=== PATIENT | female | born 1930 | race Caucasian/White ===

== ENCOUNTER 2016-11-16 16:06 | Inpatient (IN) | payer MEDICARE, OTHER ==
[2016-11-16 16:42] LABS: BASOPHILS 0.1 % (0-2); EOSINOPHILS 2.9 % (0-7); HEMATOCRIT 38.2 % (36.0-48.0); HEMOGLOBIN 13.4 g/dL (12-16); IMMATURE GRANULOCYTES 0.4 % (0-5); LYMPHOCYTES 10.9 % (15-50); MCH 34.9 pg (26.0-34.0); MCHC 35.1 g/dL (31.0-37.0); MCV 99.5 fL (80.0-100.0); MEAN PLATELET VOLUME 9.5 fL (7.4-10.4); MONOCYTES 6.9 % (2-11); NEUTROPHILS 78.8 % (40-80); PLATELET COUNT 213 10x3/uL (130-400); RBC 3.84 10x6/uL (4.00-5.40); RDW 13.5 % (11.5-14.5); WBC 11.6 10x3/uL (4.8-10.8)
[2016-11-16 16:53] LABS: INR 1.03 (0.85-1.17); PROTIME 13.4 SECONDS (11.6-15.0)
[2016-11-16 17:12] LABS: ALBUMIN 3.4 g/dL (3.4-5.0); ANION GAP 15.2 mmol/L (8-16); BILIRUBIN - TOTAL 0.56 mg/dL (0.2-1.3); CALCIUM 9.4 mg/dL (8.5-10.1); CARBON DIOXIDE 22.5 mmol/L (21.0-32.0); CREATININE - SERUM 0.9 mg/dL (0.6-1.3); POTASSIUM - SERUM 4.7 mmol/L (3.5-5.1); PROTEIN - SERUM 7.3 g/dL (6.4-8.2)
--- NOTE | 2016-11-16 21:59 | NUR ---
REC'D FROM ER FROM [facility]AY MORGAN. ALERT AND ORIENTED ONLY TO PERSON. DENIES PAIN AT THIS TIME. HAS LACERATIONS TO HER FOREHEAND AND CHIN. FACE IS BRUISED ALL OVER. IS NOT WANTING TO TAKE HER DRESS OFF, OR GET CLEANED UP. IV IS IN THE RIGHT FOREARM PATENT AND SL. CAME WITH HER WALLET, PLACED IN THE CASSETTE DUE TO THERE BEING MONEY INSIDE. THERE IS $35.30 IN THE WALLET. ROOM NUMBER IS PLACED ON WALLET. THERE IS ALSO A LIVING WILL INSIDE THE WAS DESINATING HER A DNR, WILL REPORT TO NURSE MAKE COPY AND PLACE ON CHART. PLACED MADHU MAT ON BED. DENIED FURTHER NEEDS AT THIS TIME. INSTRUCTED TO CALL IF NEEDED ANYTHING, VERBALIZED UNDERSTANDING. WILL CONT TO MONITOR. BED LOW, LOCKED, CALL LIGHT IN REACH, ALARM ON. NO DISTRESS NOTED.
--- NOTE | 2016-11-16 23:47 | NUR ---
RECIEVED REPORT. ASSUMED PT CARE.
[2016-11-17] VITALS (7 sets, daily range): BP systolic 115–158; BP diastolic 49–77; BMI 19.9
--- NOTE | 2016-11-17 03:02 | NUR ---
CALL PLACED TO ADMISSIONS AND SPOKE WITH AYE ABOUT HAVING PT BELONGINGS LOCKED IN SAFE. WAS INFORMED THAT SHE HAD NO ACCESS TO SAFE. SHE STATED THAT KALLIE COMES IN AT 0900 AND FAR SHE KNOWS SHE IS THE ONLY ONE WITH ACCESS TO SAFE. WILL PASS ON IN REPORT TO HAVE KALLIE COME TO LOCK ITEMS UP. THERE IS NO FAMILY AT BEDSIDE. ED MADE NOTE THAT THEY DID ATTEMPT TO CALL EMERGENCY CONTACT IN [facility] AND HAD TO LEAVE A MESSAGE.
--- NOTE | 2016-11-17 08:00 | NUR ---
ASSESSMENT PER FLOW SHEET.PT UP TO BATHROOM WITH ASSIST.FALL PREVENTION IN PLACE AND MADHU MAT ON.PT WITHOUT DISTRESS.CALL LIGHT IN REACH.
[2016-11-17] MEDS ORDERED: LISINOPRIL10 MG PO (09:59)
[2016-11-17] MEDS ORDERED: TOPROL XL100 MG PO (10:28)
[2016-11-17] MEDS ORDERED: ALENDRONATE SOD70 MG PO (10:30)
[2016-11-17] MEDS ORDERED: LUMIGAN 0.01%2.5 ML EACH EYE (10:30)
[2016-11-17] MEDS ORDERED: CELEBREX 100 M100 MG PO (10:30)
[2016-11-17] MEDS ORDERED: BUSPAR 15 MG TA15 MG PO (10:31)
[2016-11-17] MEDS ORDERED: TOZAL SOFTGEL1 EACH PO (10:41)
--- NOTE | 2016-11-17 10:49 | NUR ---
CM WAS NOTIFIED BY NURSING THAT THEY COULD NOT REACH DAUGHTER BY PHONE THAT WAS LISTED ON FACE SHEET. CM CALLED AND IT RANG AND RANG. CALLED THE CELL NUMBER LISTED ON CARD AND IT WAS NOT ACTIVE. CM THEN ASKED PATIENT IF SHE WOULD GIVE CONSENT FOR CM TO CALL LAW FIRM THAT WAS ON HER INFORMATION CARD AND SHE STATED YES. THE FIRM HAD THE SAME NUMBERS WAS ON THE FACE SHEET. CM TRIED 4 TIMES TO CALL DAUGHTER AND NO ANSWER. NURSE AND CM WILL CONTINUE TO TRY TO GET IN TOUCH WITH DAUGHTER.
[2016-11-17 11:10] LABS: BASOPHILS 0.1 % (0-2); EOSINOPHILS 0.7 % (0-7); HEMATOCRIT 34.9 % (36.0-48.0); HEMOGLOBIN 12.1 g/dL (12-16); IMMATURE GRANULOCYTES 0.2 % (0-5); LYMPHOCYTES 13.9 % (15-50); MCH 34.2 pg (26.0-34.0); MCHC 34.7 g/dL (31.0-37.0); MCV 98.6 fL (80.0-100.0); MEAN PLATELET VOLUME 9.7 fL (7.4-10.4); MONOCYTES 8.7 % (2-11); NEUTROPHILS 76.4 % (40-80); PLATELET COUNT 208 10x3/uL (130-400); RBC 3.54 10x6/uL (4.00-5.40); RDW 13.4 % (11.5-14.5)
[2016-11-17 11:12] LABS: WBC 8.2 10x3/uL (4.8-10.8)
[2016-11-17 11:34] LABS: ANION GAP 15.5 mmol/L (8-16); BILIRUBIN - TOTAL 0.76 mg/dL (0.2-1.3); CALCIUM 9.1 mg/dL (8.5-10.1); CARBON DIOXIDE 24.8 mmol/L (21.0-32.0); CREATININE - SERUM 0.8 mg/dL (0.6-1.3); POTASSIUM - SERUM 4.3 mmol/L (3.5-5.1); PROTEIN - SERUM 6.8 g/dL (6.4-8.2)
--- NOTE | 2016-11-17 13:46 | NUR ---
PT REFUSING MOST TX TODAY. SHE IS VERY WITHDRAWN FROM STAFF. FALL PREVENTION REMAINS IN PROGRESS WITH MADHU TUBBS.
--- NOTE | 2016-11-17 14:12 | NUR ---
CALL FROM DAUGHTER MARTINE, SHE LIVES IN [place]. SHE STATES SHE WILL BE HERE TOMORROW.
--- NOTE | 2016-11-17 16:57 | NUR ---
REMAINS WITHOUT CHANGE,WITHOUT DISTRESS.CONT PLAN OF CARE
[2016-11-18] VITALS: BP 171/95
[2016-11-18 04:00] VITALS: BP 151/80
[2016-11-18 05:15] LABS: BASOPHILS 0 % (0-2); EOSINOPHILS 0.5 % (0-7); HEMATOCRIT 35.3 % (36.0-48.0); HEMOGLOBIN 12.2 g/dL (12-16); IMMATURE GRANULOCYTES 0.4 % (0-5); LYMPHOCYTES 11.5 % (15-50); MCH 34.1 pg (26.0-34.0); MCHC 34.6 g/dL (31.0-37.0); MCV 98.6 fL (80.0-100.0); MEAN PLATELET VOLUME 9.4 fL (7.4-10.4); MONOCYTES 7.7 % (2-11); NEUTROPHILS 79.9 % (40-80); PLATELET COUNT 183 10x3/uL (130-400); RBC 3.58 10x6/uL (4.00-5.40); RDW 13.4 % (11.5-14.5)
[2016-11-18 05:44] LABS: ALBUMIN 3.1 g/dL (3.4-5.0); ALKALINE PHOSPHATASE 64 U/L (46-116); ALT (SGPT) 39 U/L (10-68); BILIRUBIN - TOTAL 0.65 mg/dL (0.2-1.3); CALC OSMOLALITY 266 mosm/kg (275-300); CALCIUM 9.3 mg/dL (8.5-10.1); CARBON DIOXIDE 23.3 mmol/L (21.0-32.0); CHLORIDE - SERUM 98 mmol/L (98-107); CREATININE - SERUM 0.6 mg/dL (0.6-1.3); GLUCOSE 108 mg/dL (74-106); POTASSIUM - SERUM 4.2 mmol/L (3.5-5.1); PROTEIN - SERUM 7.1 g/dL (6.4-8.2); SODIUM 132 mmol/L (136-145); eGFR NON AFRICAN AMERICAN > 90 mL/min (90-120)
[2016-11-18 05:45] LABS: UREA NITROGEN 16 mg/dL (7-18)
[2016-11-18 07:50] VITALS: BP 141/66
--- NOTE | 2016-11-18 08:53 | NUR ---
PATIENT LAYING IN BED WITH NO COMPLAINTS OR SIGNS OF DISTRSS. IV INTACT. BA ON. CALL LIGHT WITHIN REACH.
[2016-11-18 12:03] VITALS: BP 115/55
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
[2016-11-18 16:16] VITALS: BP 132/71
--- NOTE | 2016-11-18 18:20 | NUR ---
OT NOTE: PT COMPLETED SIT TO STANDS WITH SUPV. PT COMPLETED ADL MOB WITH SUPV. PT COMPLETED BUE AROM AX WITH SUPV. THANK YOU, JAKOB MCKEON/Chelsey
[2016-11-18 20:00] VITALS: BP 133/70
[2016-11-19] VITALS: BP 134/87
[2016-11-19 04:21] VITALS: BP 141/86
--- NOTE | 2016-11-19 04:45 | NUR ---
ASSESSED, AT THE BEGINNING OF THE SHIFT. PT IS CONFUSED AND WE HAVE A MADHU IN PLACE TO LET US KNOW SHE IS GETTING UP. SHE REMAINS INCONT. OF URINE AND EVEN THOUGH WE HAVE FREQUENTLY ASKED HER IF SHE NEEDS TO USE THE BSC SHE ALWAYS SAYS NO AND THEN IS INCONT. WHEN BEING CHANGED AND SITTING ON THE BSC SHE ALSO VOIDS. HER MEDS HAVE ALL BEEN TAKEN WELL AND SHE DENIES PAIN MOST OF THE TIME. THE BED IS LOW, RAILS UP X'S [address] ALARM IN PLACE AND CALL LIGHT AT HAND.
[2016-11-19 06:31] LABS: BASOPHILS 0.3 % (0-2); EOSINOPHILS 1.4 % (0-7); HEMATOCRIT 34.4 % (36.0-48.0); HEMOGLOBIN 11.9 g/dL (12-16); IMMATURE GRANULOCYTES 0.4 % (0-5); LYMPHOCYTES 19.3 % (15-50); MCHC 34.6 g/dL (31.0-37.0); MCV 98.3 fL (80.0-100.0); MEAN PLATELET VOLUME 9.2 fL (7.4-10.4); NEUTROPHILS 65.6 % (40-80); PLATELET COUNT 175 10x3/uL (130-400); RDW 13.2 % (11.5-14.5)
[2016-11-19 06:52] LABS: ALBUMIN 2.9 g/dL (3.4-5.0); ALKALINE PHOSPHATASE 53 U/L (46-116); ALT (SGPT) 33 U/L (10-68); CALC OSMOLALITY 268 mosm/kg (275-300); CALCIUM 9.1 mg/dL (8.5-10.1); CARBON DIOXIDE 26.7 mmol/L (21.0-32.0); CHLORIDE - SERUM 98 mmol/L (98-107); CREATININE - SERUM 0.6 mg/dL (0.6-1.3); GLUCOSE 113 mg/dL (74-106); POTASSIUM - SERUM 4.1 mmol/L (3.5-5.1); PROTEIN - SERUM 6.4 g/dL (6.4-8.2); SODIUM 133 mmol/L (136-145); UREA NITROGEN 17 mg/dL (7-18); eGFR NON AFRICAN AMERICAN > 90 mL/min (90-120)
--- NOTE | 2016-11-19 09:05 | NUR ---
PATIENT ALERT IN HIGH JESUS POSITION. NO SIGNS OF DISTRESS NOTED. SIDE RAILS UP X2. BED IN LOW POSITION. CALL LIGHT IN REACH.
[2016-11-19 09:24] VITALS: BP 122/60
[2016-11-19 12:49] VITALS: BP 114/60; BP 117/68
[2016-11-19 17:06] LABS: APPEARANCE HAZY (CLEAR); BILIRUBIN NEGATIVE (NEGATIVE); COLOR DK YELLOW (YELLOW); GLUCOSE NEGATIVE (NEGATIVE); KETONE LARGE mg/dL (NEGATIVE); NITRITE NEGATIVE (NEGATIVE); PROTEIN TRACE mg/dL (NEGATIVE); UROBILINOGEN NORMAL (NORMAL)
[2016-11-19 17:08] LABS: AMORPHOUS SEDIMENT >1+ /lpf (NONE SEEN); BACTERIA FEW /hpf (NONE SEEN); RED CELLS - URINE 0-5 /hpf (0-5)
--- NOTE | 2016-11-19 19:15 | NUR ---
RECEIVED CARE FROM DAY NURSE. PT LYING IN BED WITH EYES CLOSED. RESP EVEN AND UNLABORED. CALL LIGHT AT SIDE. PT EASY TO ROUSE.
--- NOTE | 2016-11-19 19:43 | NUR ---
LATE ENTRY 1230 PATIENT'S DAUGHTER AT THE BEDSIDE. SHE PROVIDED CM WITH INSURANCE CARDS. TC TO ER REGISTRATION. COPIES MADE OF CARDS AND ER REGISTRATOR PICKED THEM UP. PAPERWORK FOR MED DATA AT THE BEDSIDE. TC TO MED DATA. DAYSI VISITED AT THE BEDSIDE WITH THE DAUGHTER. CM PROVIDED THE DAUGHTER WITH BROCHURE FOR [facility]. SHE ALSO HAS BROCHURE FOR [facility]. UNABLE TO DOCUMENT IN [email or web address]- WEB PAGE DOWN.
[2016-11-19 20:02] VITALS: BP 123/60
[2016-11-19 23:51] VITALS: BP 133/69
--- NOTE | 2016-11-19 23:58 | NUR ---
RESTING QUITLY. RESP EVEN AND UNLABORED. CALL LIGHT AT SIDE. NO IV DUE TO PT FREQUENT REMOVAL AND NO FLUIDS ORDERED.
--- NOTE | 2016-11-20 03:40 | NUR ---
ASSESSED, PT HAS JUST RECENTLY RECEIVED A BATH AND IS NOW RESTING QUIET WITH EASY RESPIRATIONS AND NO DISTRESS NOTED. SHE HAS A MADHU IN HER BED AND IF WE GET A CHANCE WE ARE TRYING TO TAKE HER TO THE BEDSIDE COMMODE BEFORE SHE IS INCONT. THE BED IS LOW, RAILS UP X'S 2 WITH THE CALL LIGHT AT HAND.
[2016-11-20 04:02] VITALS: BP 128/73
[2016-11-20 05:54] LABS: BASOPHILS 0.1 % (0-2); EOSINOPHILS 1.7 % (0-7); HEMATOCRIT 33.6 % (36.0-48.0); HEMOGLOBIN 11.8 g/dL (12-16); IMMATURE GRANULOCYTES 0.1 % (0-5); LYMPHOCYTES 18.9 % (15-50); MCH 34.3 pg (26.0-34.0); MCHC 35.1 g/dL (31.0-37.0); MCV 97.7 fL (80.0-100.0); MEAN PLATELET VOLUME 9.6 fL (7.4-10.4); MONOCYTES 13.7 % (2-11); NEUTROPHILS 65.5 % (40-80); PLATELET COUNT 203 10x3/uL (130-400); RBC 3.44 10x6/uL (4.00-5.40); WBC 7.6 10x3/uL (4.8-10.8)
[2016-11-20 06:05] LABS: ALBUMIN 2.7 g/dL (3.4-5.0); ALKALINE PHOSPHATASE 53 U/L (46-116); ALT (SGPT) 25 U/L (10-68); BILIRUBIN - TOTAL 0.65 mg/dL (0.2-1.3); CALC OSMOLALITY 270 mosm/kg (275-300); CALCIUM 8.9 mg/dL (8.5-10.1); CARBON DIOXIDE 25.7 mmol/L (21.0-32.0); CHLORIDE - SERUM 99 mmol/L (98-107); CREATININE - SERUM 0.5 mg/dL (0.6-1.3); GLUCOSE 108 mg/dL (74-106); POTASSIUM - SERUM 3.8 mmol/L (3.5-5.1); PROTEIN - SERUM 6.2 g/dL (6.4-8.2); SODIUM 134 mmol/L (136-145); UREA NITROGEN 17 mg/dL (7-18); eGFR NON AFRICAN AMERICAN > 90 mL/min (90-120)
--- NOTE | 2016-11-20 07:50 | NUR ---
SLEEPING, NO DISTRESS NOTED, BREATHING EVEN UNLABORED, CALL LIGHT IN REACH, BED LOWEST POSITION, BED ALARM ON, WILL CONITNUE TO MONITOR
[2016-11-20 08:38] VITALS: BP 126/66
[2016-11-20 12:08] VITALS: BP 139/68
[2016-11-20 16:16] VITALS: BP 142/70
--- NOTE | 2016-11-20 17:15 | NUR ---
RECEIVED CARE FROM DAY NURSE. PT UP TO BEDSIDE CHAIR WITH DAUGHTER AT SIDE. NO NEEDS VOICED AT THIS TIME. CALL LIGHT WITHIN REACH.
[2016-11-20 19:55] VITALS: BP 135/68
[2016-11-20 23:47] VITALS: BP 118/66
--- NOTE | 2016-11-21 00:16 | NUR ---
PATIENT RESTING IN BED WITH NAHUN MAYORGA AT BEDSIDE. NO VISIBLE SIGNS OF DISTRESS NOTED. BED IN LOWEST POSITION AND CALL LIGHT WITHIN REACH.
--- NOTE | 2016-11-21 02:57 | NUR ---
PT UP IN CHAIR. MADHU SEAT ALARM IN PLACE. REPORTS NO NEEDS AT THIS TIME. CALL LIGHT AT SIDE.
[2016-11-21 04:01] VITALS: BP 100/64
--- NOTE | 2016-11-21 04:25 | NUR ---
PT BACK TO BED AND RESTING QUITLY. RESP EVEN AND UNLABORED. CALL LIGHT AT SIDE. MADHU ALARM ACTIVATED.
[2016-11-21 05:54] LABS: BASOPHILS 0.2 % (0-2); EOSINOPHILS 2.1 % (0-7); HEMATOCRIT 33.2 % (36.0-48.0); HEMOGLOBIN 11.5 g/dL (12-16); IMMATURE GRANULOCYTES 0.2 % (0-5); LYMPHOCYTES 18.2 % (15-50); MCH 34.3 pg (26.0-34.0); MCHC 34.6 g/dL (31.0-37.0); MCV 99.1 fL (80.0-100.0); MEAN PLATELET VOLUME 9.2 fL (7.4-10.4); MONOCYTES 12.4 % (2-11); NEUTROPHILS 66.9 % (40-80); PLATELET COUNT 204 10x3/uL (130-400); RBC 3.35 10x6/uL (4.00-5.40); RDW 13.2 % (11.5-14.5); WBC 6.6 10x3/uL (4.8-10.8)
[2016-11-21 06:17] LABS: ALBUMIN 2.7 g/dL (3.4-5.0); ALKALINE PHOSPHATASE 45 U/L (46-116); ALT (SGPT) 24 U/L (10-68); CALC OSMOLALITY 271 mosm/kg (275-300); CALCIUM 8.9 mg/dL (8.5-10.1); CARBON DIOXIDE 26.3 mmol/L (21.0-32.0); CHLORIDE - SERUM 99 mmol/L (98-107); CREATININE - SERUM 0.5 mg/dL (0.6-1.3); GLUCOSE 127 mg/dL (74-106); POTASSIUM - SERUM 3.6 mmol/L (3.5-5.1); PROTEIN - SERUM 6.1 g/dL (6.4-8.2); SODIUM 134 mmol/L (136-145); UREA NITROGEN 17 mg/dL (7-18); eGFR NON AFRICAN AMERICAN > 90 mL/min (90-120)
[2016-11-21 08:44] VITALS: BP 124/66
[2016-11-21 12:40] VITALS: BP 106/56
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
--- NOTE | 2016-11-21 14:46 | NUR ---
Rehab Note- [facility] Pres[facility] order received. Visited with the patient, she's sitting up in the chair reading through a booklet. Stated she was willing to participate in the required therapy for acute inpatient rehab and if they thought she was ready to go she was ready. Notified AMALIA Lau and VENKAT Moreau that the patient can be accepted to [facility] IRF. Thank you for this referral! Paulina Hand RN Clinical Liaison, [facility] Rehab
--- NOTE | 2016-11-21 15:14 | NUR ---
CM REASSESSMENT NOTE: PATIENT IS DISCHARGING TO IP REHAB TODAY. PATIENTS FAMILY IS AWARE (MARTINE). IMM SERVED
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
--- NOTE | 2016-11-21 17:45 | NUR ---
DISCHARGED PAPER AND INSTRUCTIONS GIVEN TO PT AND DAUGHTER, REPORT CALLED TO RAUL IN IN-PATIENT REHAB, QUESTIONS ANSWERED, DISCHARGED PER WC WITH BELONGINGS
== END 2016-11-21 17:47 | DRG 89 ==
LOC: D.ER 16:06 → D.MS 20:33 → D.ER 20:33 → OBSVTIME 20:33 → D.MS 11-18 16:01
PROVIDERS: Emergency Medicine; Family Medicine; ADMIT Family Medicine
PROC: 0HQ1XZZ Repair Face Skin, External Approach (ICD-10-PCS; principal; 2016-11-16)
DX: S06.0X9A Concussion with loss of consciousness of unspecified duration, initial encounter (principal); E87.1 Hypo-osmolality and hyponatremia; S02.2XXA Fracture of nasal bones, initial encounter for closed fracture; I62.03 Nontraumatic chronic subdural hemorrhage; I10 Essential (primary) hypertension; D18.1 Lymphangioma, any site; I48.2 Chronic atrial fibrillation; S01.81XA Laceration without foreign body of other part of head, initial encounter; V49.9XXA Car occupant (driver) (passenger) injured in unspecified traffic accident, initial encounter

== ENCOUNTER 2016-11-21 16:59 | Inpatient (IN) | payer MEDICARE, OTHER ==
[~2016-11-21 16:59] MED LIST: ALENDRONATE SOD70 MG PO; BUSPAR 15 MG TA15 MG PO; CELEBREX 100 M100 MG PO; LISINOPRIL10 MG PO; LUMIGAN 0.01%2.5 ML EACH EYE; TOPROL XL100 MG PO; TOZAL SOFTGEL1 EACH PO
[2016-11-21 21:30] VITALS: BP 141/60
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
[2016-11-22 05:43] LABS: BASOPHILS 0 % (0-2); EOSINOPHILS 2.7 % (0-7); HEMATOCRIT 33.6 % (36.0-48.0); HEMOGLOBIN 11.7 g/dL (12-16); IMMATURE GRANULOCYTES 0.4 % (0-5); LYMPHOCYTES 18.9 % (15-50); MCH 34.4 pg (26.0-34.0); MCHC 34.8 g/dL (31.0-37.0); MCV 98.8 fL (80.0-100.0); MEAN PLATELET VOLUME 9.3 fL (7.4-10.4); MONOCYTES 12.5 % (2-11); NEUTROPHILS 65.5 % (40-80); PLATELET COUNT 236 10x3/uL (130-400); RDW 13.2 % (11.5-14.5); WBC 7.1 10x3/uL (4.8-10.8)
[2016-11-22 06:06] LABS: CALC OSMOLALITY 268 mosm/kg (275-300); CARBON DIOXIDE 27.5 mmol/L (21.0-32.0); CHLORIDE - SERUM 97 mmol/L (98-107); GLUCOSE 117 mg/dL (74-106); POTASSIUM - SERUM 3.8 mmol/L (3.5-5.1); SODIUM 132 mmol/L (136-145); UREA NITROGEN 20 mg/dL (7-18); eGFR NON AFRICAN AMERICAN 84 mL/min (90-120)
[2016-11-22 06:07] LABS: CREATININE - SERUM 0.7 mg/dL (0.6-1.3)
[2016-11-22 08:00] VITALS: BP 145/67
--- NOTE | 2016-11-22 08:50 | NUR ---
PT AM MEDS ADMINISTERED. PT RESTING IN BED AND DENIES NEEDS. WCTM.
[2016-11-22 12:22] VITALS: BMI 19.9
--- NOTE | 2016-11-22 12:30 | NUR ---
PT ADMISSION PAPERS SIGNED BY DAUGHTER. PT EATING LUNCH AND DENIES NEEDS AT THIS TIME. WCTM.
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
--- NOTE | 2016-11-22 19:38 | NUR ---
PT. IN BED WITH HOB UP FOR COMFORT WITH EYES CLOSED AND RESP. EVEN. CALL LIGHT WITHIN REACH.
--- NOTE | 2016-11-22 20:10 | NUR ---
REST IN BED, HOB 30 DEGREE, BED LOW, CALL LIGHT IN REACH.
[2016-11-22 22:09] VITALS: BP 114/62
--- NOTE | 2016-11-23 02:03 | NUR ---
REPOSITION PT, TURN TO RIGHT SIDE AND REST COMFORTABLY.
[2016-11-23 06:13] LABS: BASOPHILS 0.3 % (0-2); HEMATOCRIT 35.1 % (36.0-48.0); HEMOGLOBIN 12.1 g/dL (12-16); IMMATURE GRANULOCYTES 0.3 % (0-5); LYMPHOCYTES 22.6 % (15-50); MCH 34.5 pg (26.0-34.0); MCHC 34.5 g/dL (31.0-37.0); MEAN PLATELET VOLUME 9.1 fL (7.4-10.4); MONOCYTES 12.6 % (2-11); NEUTROPHILS 61.2 % (40-80); PLATELET COUNT 262 10x3/uL (130-400); RBC 3.51 10x6/uL (4.00-5.40); RDW 13.4 % (11.5-14.5); WBC 6.7 10x3/uL (4.8-10.8)
[2016-11-23 06:44] LABS: CALC OSMOLALITY 271 mosm/kg (275-300); CALCIUM 9.1 mg/dL (8.5-10.1); CARBON DIOXIDE 25.8 mmol/L (21.0-32.0); CHLORIDE - SERUM 97 mmol/L (98-107); CREATININE - SERUM 0.6 mg/dL (0.6-1.3); GLUCOSE 105 mg/dL (74-106); POTASSIUM - SERUM 4.3 mmol/L (3.5-5.1); SODIUM 134 mmol/L (136-145); UREA NITROGEN 23 mg/dL (7-18); eGFR NON AFRICAN AMERICAN > 90 mL/min (90-120)
--- NOTE | 2016-11-23 07:59 | NUR ---
PT SITTING UP IN BED EATING BREAKFAST, DENIES NEEDS. WCTM.
[2016-11-23 08:40] VITALS: BP 121/78
--- NOTE | 2016-11-23 10:00 | NUR ---
PT RESTING IN ROOM, DAUGHTER AT BEDSIDE. PT DENIES NEEDS. WCTM.
--- NOTE | 2016-11-23 12:30 | NUR ---
PT EATING LUNHC, DENIES NEEDS. WCTM.
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
--- NOTE | 2016-11-23 16:03 | NUR ---
Wound care consult: Noted bruising to face, arms, hands and legs. Pt has very slow to demetrio right heel and non-blanchable left lateral heel (stage 1 pressure injury)-present on admission. There is also a stage 1 pressure injury to coccyx. Heels are being bridged at all times while in bed. Pt is being repositioned q2h while awake in bed. Calmoseptine cream is being applied to bottom. Wound care will continue to monitor.
--- NOTE | 2016-11-23 17:22 | NUR ---
PT EATING DINNER, DENIES NEEDS. WCTM.
--- NOTE | 2016-11-23 19:15 | NUR ---
PT IN BED WITH HOB UP FOR COMFORT WITH EYES CLOSED AND RESP. EVEN. CALL LIGHT WITHIN REACH.
[2016-11-23 20:00] VITALS: BP 132/71
--- NOTE | 2016-11-23 21:02 | NUR ---
PT RESTING IN BED WITH EYES CLOSED. OPENS EYES TO LOUD VERBAL STIMULI. PT DID NOT SPEAK TO ME AT ALL. TOOK PM MEDS WITH 1 SWALLOW OF WATER ONLY. SHE WOULD NOT TRY ANOTHER. PT ASSISTED TO REPOSITION IN BED. SR'S ARE UP X 3 IN BED. CALL LIGHT AND BEDSIDE TABLE ARE WITHIN EASY REACH.
--- NOTE | 2016-11-24 00:42 | NUR ---
RESTING IN BED WITH EYES CLOSED.
--- NOTE | 2016-11-24 03:30 | NUR ---
RESTING IN BED WITH EYES CLOSED.
--- NOTE | 2016-11-24 05:43 | NUR ---
PT RESTING IN BED WITH EYES CLOSED. RESPONDS TO LOUD VERBAL STIMULI FOR A FEW SECONDS, THEN CLOSES HER EYES AGAIN. NO VERBAL COMMUNICATION NOTED.
--- NOTE | 2016-11-24 07:13 | NUR ---
RESTING QUIETLY IN BED. BED IN LOWEST POSITION. CALL LIGHT IN REACH
[2016-11-24 08:03] VITALS: BP 110/62
--- NOTE | 2016-11-24 08:26 | NUR ---
PT RESTING IN BED WITH EYES OPEN CALL LIGHT IN REACH WILL MONITER
--- NOTE | 2016-11-24 13:41 | NUR ---
PT UP IN WHEELCHAIR OUT IN COURTYARD WITH DAUGHTER WILL JOSE
--- NOTE | 2016-11-24 18:11 | NUR ---
PT RESTING IN BED WITH EYES OPEN CALL LIGHT IN REACH WILL MONITER
--- NOTE | 2016-11-24 19:15 | NUR ---
RESTING IN BED, EYES CLOSED.
[2016-11-24 20:40] VITALS: BP 128/63
--- NOTE | 2016-11-24 20:40 | NUR ---
HS MEDS GIVEN TO PATIENT. PATIENT I ORIENTED X1. SHE IS DROWSY BUT ATTENDS ALL QUESTIONS AND TOOK HER MEDICATIONS WITHOUT DIFFICULTY.
--- NOTE | 2016-11-24 21:55 | NUR ---
RESTING IN BED, EYES CLOSED. NO DISTRESS NOTED.
--- NOTE | 2016-11-24 22:45 | NUR ---
REMAINS IN BED, EYES CLOSED. RESTING QUIETLY.
[2016-11-24 22:56] VITALS: BP 128/63
--- NOTE | 2016-11-25 00:10 | NUR ---
REMAINS IN BED, EYES CLOSED. NO DISTRESS NOTED.
--- NOTE | 2016-11-25 03:50 | NUR ---
RESTING IN BED, EYES CLOSED. RESPIRING QUIETLY.
[2016-11-25 05:13] LABS: BASOPHILS 0.2 % (0-2); EOSINOPHILS 2.9 % (0-7); HEMATOCRIT 32.5 % (36.0-48.0); HEMOGLOBIN 11.4 g/dL (12-16); IMMATURE GRANULOCYTES 0.4 % (0-5); LYMPHOCYTES 17.1 % (15-50); MCH 34.5 pg (26.0-34.0); MCHC 35.1 g/dL (31.0-37.0); MCV 98.5 fL (80.0-100.0); MEAN PLATELET VOLUME 8.9 fL (7.4-10.4); MONOCYTES 12.3 % (2-11); NEUTROPHILS 67.1 % (40-80); PLATELET COUNT 263 10x3/uL (130-400); WBC 8.3 10x3/uL (4.8-10.8)
[2016-11-25 05:29] LABS: CALC OSMOLALITY 277 mosm/kg (275-300); CALCIUM 9.3 mg/dL (8.5-10.1); CARBON DIOXIDE 27.5 mmol/L (21.0-32.0); CHLORIDE - SERUM 100 mmol/L (98-107); CREATININE - SERUM 0.7 mg/dL (0.6-1.3); GLUCOSE 105 mg/dL (74-106); SODIUM 137 mmol/L (136-145); UREA NITROGEN 25 mg/dL (7-18); eGFR NON AFRICAN AMERICAN 84 mL/min (90-120)
--- NOTE | 2016-11-25 06:50 | NUR ---
ASSISTED PATIENT TO CHANGED FROJM GOWN TO SCRUB TOP AND BRIEF. DENIES NEEDS.
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
--- NOTE | 2016-11-25 09:12 | NUR ---
PT RESTING IN BED WITH EYES OPEN CALL LIGHT IN REACH WILL MONITER
--- NOTE | 2016-11-25 13:36 | NUR ---
PT RESTING IN BED WITH EYES OPEN CALL LIGHT IN REACH NO PROBLEMS WILL MONITER
[2016-11-25 18:15] VITALS: BP 133/82
--- NOTE | 2016-11-25 18:15 | NUR ---
PT RESTING IN BED WITH EYES OPEN CALL LIGHT IN REACH WILL MONITER
--- NOTE | 2016-11-25 18:45 | NUR ---
IN BED, AWAKE. DENIES NEEDS.
--- NOTE | 2016-11-25 20:00 | NUR ---
RESTING QUIETLY IN BED, HOB UP 45 DEGREES. NO DISTRESS NOTED.
--- NOTE | 2016-11-25 22:50 | NUR ---
ASSESSMENT AND HS MEDS COMPLETE. DENIES NEEDS. TURNED PATIENT TO LEFT SIDELYING POSITION.
--- NOTE | 2016-11-26 00:30 | NUR ---
RESTING IN BED, EYES CLOSED.
--- NOTE | 2016-11-26 02:15 | NUR ---
RESTING IN BED ON LEFT SIDE. APPEARS COMFORTABLE.
--- NOTE | 2016-11-26 03:50 | NUR ---
RESTING QUIETLY IN BED. RESPIRATIONS UNLABORED.
--- NOTE | 2016-11-26 05:50 | NUR ---
GAVE PATIENT SCHEDULED PROTONIX PO. CLEANSED HER AND CHANGED BRIEF FROM MODERATE URINE INCONTINENCE.
[2016-11-26 08:00] VITALS: BP 111/59
--- NOTE | 2016-11-26 08:00 | NUR ---
PATIENT IS VERY CONFUSED. TRYING TO CLIMB OUT OF BED TO USE THE BATHROOM. MADHU BED ALARM WENT OFF. THIS NURSE HELPED PATIENT INTO BATHROOM. MODERATE ASST OF ONE. PATIENT BRIEF WET. THIS NURSE HELPED PATIENT WITH KARAN CARE AND TO APPLY NEW BRIEF.
--- NOTE | 2016-11-26 12:00 | NUR ---
PATIENT HAS A POOR APPETITE. ONLY ATE 10% OF LUNCH. FLUIDS ENCOURAGED BY THIS NURSE.
--- NOTE | 2016-11-26 13:44 | NUR ---
PATIENT DOWN IN REHAB ROOM. WORKING WITH PHYSICAL THERAPIST. DENIES ANY PAIN/DISC.
--- NOTE | 2016-11-26 14:34 | NUR ---
IN BATHROOM WITH NURSE ATTENDING.
--- NOTE | 2016-11-26 14:54 | NUR ---
PATIENT HELPED WITH SHOWER BY THIS NURSE. PATIENT ABLE TO WASH AND DRY FRONT OF SELF. THIS NURSE WASHED HAIR, BACK, LEGS AND BOTTOM. LINES ON BED CHANGED.
--- NOTE | 2016-11-26 17:31 | NUR ---
PATIENTS FAMILY MEMBER IN ROOM WITH PATIENT. BROUGHT IN SOME FOOD FROM OUT OF HOSPITAL FOR PATIENT TO EAT FOR SUPPER.
[2016-11-26 19:15] VITALS: BP 117/63
--- NOTE | 2016-11-26 19:15 | NUR ---
VS AND ASSESSMENT COMPLETE. DENIES NEEDS. REMINDED HER SHE IS NOT TO ATTEMPT OOB WITHOUT STAFF ASSIST. CONTINUES IN BED WITH MADHU BED ALARM ARMED. SR UP X3. WATER AND CALL LIGHT IN REACH.
--- NOTE | 2016-11-26 21:00 | NUR ---
HS MEDS GIVEN TO PATIENT. DENIES NEEDS. CLEANSED PATIENT FROM SMALL LOOSE BM INCONTINENCE. APPLIED CALMOSEPTINE OINTMENT AND A FRESH PULL-UP. REPOSITIONED PATIENT HIGHER UP IN BED. HEELS BRIDGED WITH A PILLOW.
--- NOTE | 2016-11-26 21:50 | NUR ---
RESTING QUIETLY IN BED, EYES CLOSED.
--- NOTE | 2016-11-26 23:05 | NUR ---
RESTING QUIETLY IN BED, EYES CLOSED.
--- NOTE | 2016-11-27 01:10 | NUR ---
CAUGHT PATIENT ATTEMPTING OOB, ALONE, WITH MADHU ALARM SOUNDING. RESET ALARM. AMBULATED PATIENT TO [facility] WHERE SHE URINATED AND WAS ASSISTED TO CHANGE HER BRIEF AFTER LARGE URINE INCONTINENCE. RETURNED PATIENT TO BED. REMINDED HER TO CALL FOR ASSIST AND NOT TO ATTEMPT OOB WITHOUT STAFF ASSIST. CONTINUES ORIENTED TO SELF ONLY.
--- NOTE | 2016-11-27 03:20 | NUR ---
REMAISN IN BED, EYES CLOSED. NO EVIDENT DISTRESS.
--- NOTE | 2016-11-27 04:45 | NUR ---
IN BED, EYES CLOSED. RESPIRATIONS UNLABORED.
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
--- NOTE | 2016-11-27 07:40 | NUR ---
PT ASSISTED TO/FROM BATHROOM. PT SITTING UP IN WC EATING BREAKFAST. WCTM.
[2016-11-27 08:00] VITALS: BP 126/75
--- NOTE | 2016-11-27 10:23 | NUR ---
PT ASSISTED TO/FROM BATHROOM. PT HAD BROWN, WATERY BM. PT BACK IN BED AT THIS TIME AND DENIES NEEDS. WCTM.
--- NOTE | 2016-11-27 12:20 | NUR ---
PT ASSISTED TO/FROM BATHROOM. PT SITTING UP IN WC AT THIS TIME EATING LUNCH, DENIES NEEDS.
--- NOTE | 2016-11-27 19:25 | NUR ---
RESTING QUIETLY IN BED, EYES CLOSED.
--- NOTE | 2016-11-27 20:20 | NUR ---
REMAINS IN BED, EYES CLOSED. NO DISTRESS EVIDENT.
[2016-11-27 22:00] VITALS: BP 151/64
--- NOTE | 2016-11-27 22:15 | NUR ---
ASSESSMENT, VS, AND HS MEDS COMPLETE. PATIENT DROWSY BUT RESPONSIVE AND COOPERATIVE. DENIES NEEDS.
--- NOTE | 2016-11-28 00:25 | NUR ---
REMAINS IN BED, HOB UP 20 DEGREES. APPEARS COMFORTABLE.
--- NOTE | 2016-11-28 02:00 | NUR ---
IN BED, EYES CLOSED. NO APPARENT DISCOMFORT.
--- NOTE | 2016-11-28 04:40 | NUR ---
IN BED, EYES CLOSED. RESPIRATIONS UNOLABORED.
--- NOTE | 2016-11-28 05:45 | NUR ---
SET OFF BED ALARM ATTEMPTING OOB. ASSISTED PATIENT UP TO BR TO CHANGE BRIEF AFTER SMALL URINE INCONTINENCE. URINATED A LARGE AMOUNT IN COMMODE. RETURNED HER TO BED.
[2016-11-28 05:59] LABS: BASOPHILS 0.1 % (0-2); EOSINOPHILS 3.4 % (0-7); HEMATOCRIT 33.8 % (36.0-48.0); HEMOGLOBIN 11.6 g/dL (12-16); IMMATURE GRANULOCYTES 0.3 % (0-5); LYMPHOCYTES 22.1 % (15-50); MCH 33.5 pg (26.0-34.0); MCHC 34.3 g/dL (31.0-37.0); MCV 97.7 fL (80.0-100.0); MONOCYTES 10.9 % (2-11); NEUTROPHILS 63.2 % (40-80); PLATELET COUNT 306 10x3/uL (130-400); RBC 3.46 10x6/uL (4.00-5.40); RDW 12.8 % (11.5-14.5)
[2016-11-28 06:18] LABS: CALC OSMOLALITY 265 mosm/kg (275-300); CALCIUM 8.9 mg/dL (8.5-10.1); CARBON DIOXIDE 26.1 mmol/L (21.0-32.0); CHLORIDE - SERUM 99 mmol/L (98-107); CREATININE - SERUM 0.6 mg/dL (0.6-1.3); GLUCOSE 101 mg/dL (74-106); POTASSIUM - SERUM 3.7 mmol/L (3.5-5.1); SODIUM 133 mmol/L (136-145); UREA NITROGEN 12 mg/dL (7-18); eGFR NON AFRICAN AMERICAN > 90 mL/min (90-120)
--- NOTE | 2016-11-28 07:45 | NUR ---
PT SITTING UP IN BED, BREAKFAST TRAY ON TABLE. PT NOT EATING. WHEN ASKED IF PT IS HUNGRY PT STATES "YES." I CUT UP PANCAKE AND SAUSAGE AND PT JUST LOOKED AT IT. WHEN I FED PT SHE ATE 90% OF BREAKFAST. WCTM.
[2016-11-28 09:11] VITALS: BP 155/85
--- NOTE | 2016-11-28 09:57 | NUR ---
PT SHOWERED AND ASSISTED TO USE BR. PT NOW SITTING UP IN WC WAITING FOR THERAPY TO START. WCTM.
--- NOTE | 2016-11-28 11:01 | NUR ---
Nutrition Follow Up: Pt was in therapy at the time of RD visit. Interview deferred. Chart reviewed. Noted per nursing note nurse fed pt and she ate 90% breakfast this am. Noted per chart pt with some confusion at times. Pt is eating 20% meal avg on a regular diet. She is receiving Ensure TID. +BM 11/27/16. Labs and meds reviewed. Rec continue current diet. Rec assistance with meals. Will continue to provide selective menus and honor food preferences. RD following.
--- NOTE | 2016-11-28 16:07 | NUR ---
PT RESTING, EYES CLOSED. BED LOW. CL IN REACH. WCTM.
--- NOTE | 2016-11-28 19:45 | NUR ---
PT IN BED WITH HOB UP FOR COMFORT. WATCHING TV. FACIAL BRUISING. NO O2. NO IV. MADHU ALARM ON. BED IN LOWEST POSITION AND CALL LIGHT WITHIN REACH.
--- NOTE | 2016-11-28 21:50 | NUR ---
PT REFUSING TO GO TO BATHROOM PER JAGDEEP YARD SUPERVISOR.
--- NOTE | 2016-11-29 01:45 | NUR ---
PT IN BED WITH HOB UP FOR COMFORT. EYES CLOSED. CHEST RISING AND FALLING. BED IN LOWEST POSITION AND CALL LIGHT WITHIN REACH.
--- NOTE | 2016-11-29 04:24 | NUR ---
PT IN BED WITH HOB UP FOR COMFORT. EYES CLOSED. RESPIRATIONS EVEN. BED IN LOWEST POSITION AND CALL LIGHT WITHIN REACH.
--- NOTE | 2016-11-29 05:19 | NUR ---
RESTING IN BED WITH EYES CLOSED AT THIS TIME. NO S/S OF DISTRESS OBSERVED. REQUIRES STAND BY ASSIST TO TOILET AND HAS PERIODS OF URINE INCONTINENCE. REQUIRES LOTS OF CUES. CALL LIGHT AND OVERBED TABLE IN REACH.
[2016-11-29 08:33] VITALS: BP 113/59
--- NOTE | 2016-11-29 09:02 | NUR ---
PT RESTING IN BED WITH EYES OPEN CALL LIGHT IN REACH NO PROBLEMS WILL MONITER
--- NOTE | 2016-11-29 14:22 | NUR ---
PT RESTING IN BED WITH EYES OPEN CALL LIGHT IN REACH WILL MONITER
--- NOTE | 2016-11-29 20:10 | NUR ---
PT IN BED WITH HOB @ 30 DEGREES. ALERT & ORIENTED. FAMILY AT BEDSIDE. TRACH. NO O2. O2 @ 6L @ NIGHT. NO IV. OSMOLITE 1.0 RUNNING THROUGH PT @ 57 ML/HR AND FLUSH 10 ML/HR. CONTACT ISOLATION FOR MDRO IN URINE. NPO. SUPRAPUBIC CATH. INCONTINENT OF BOWEL. PRESSURE ULCERS ON LEFT KNEE, SACRUM, AND HEAD. BED IN LOWEST POSITION AND CALL LIGHT WITHIN REACH.
--- NOTE | 2016-11-29 20:15 | NUR ---
PT IN BED WITH HOB UP FOR COMFORT. WATCHING TV. FACIAL BRUISING. NO O2. NO IV. INCONTINENT AT TIMES. BED IN LOWEST POSITION AND CALL LIGHT WITHIN REACH. MADHU ALARM ON.
[2016-11-29 21:00] VITALS: BP 121/59
--- NOTE | 2016-11-30 00:10 | NUR ---
PT IN BED WITH HOB UP FOR COMFORT. EYES CLOSED. CHEST RISING AND FALLING. BED IN LOWEST POSITION AND CALL LIGHT WITHIN REACH.
--- NOTE | 2016-11-30 01:01 | NUR ---
RESTING IN BED WITH EYES CLOSED. EASILY AROUSES WHEN DOOR OPENS. CONTINUES TO HAVE DARK PURPLE BRUISING TO FACE. HOB ELEVATED PER PT PREFERENCE. SIDE RAILS UP X2. DENIES ANY PAIN AT THIS TIME. CALL LIGHHT AND OVERBED TABLE IN REACH.
--- NOTE | 2016-11-30 03:46 | NUR ---
ASSISTED PT TO BATHROOM AND BACK TO BED.
--- NOTE | 2016-11-30 04:46 | NUR ---
PT IN BED WITH HOB UP FOR COMFORT. EYES CLOSED. CHEST RISING AND FALLING. BED IN LOWEST POSITION AND CALL LIGHT WITHIN REACH.
[2016-11-30 08:12] VITALS: BP 100/65
--- NOTE | 2016-11-30 08:15 | NUR ---
PT IN BED EATING BREAKFAST TOLERATING WELL WILL MONITER
--- NOTE | 2016-11-30 08:36 | NUR ---
DOWN TO THWRAPY/WC WITH MARIA VICTORIA.ACTIVE IN PARTICIPATION.
--- NOTE | 2016-11-30 14:24 | NUR ---
PT RESTING IN BED WITH EYES OPEN CALL LIGHT IN REACH WILL MONITER
--- NOTE | 2016-11-30 17:39 | NUR ---
CARE TEAM MEETING: PATIENT DAUGHTER ATTENDED MEETING AND SHE HAS ARRANGED FOR 24 HOUR CARE FOR HER MOTHER WHEN SHE DISCHARGES. SHE WILL HAVE HOME HEALTH AND WILL HAVE FOLLOW UP APPOINTMENTS WITH HER PCP AND WITH DR. ASHTON AT TIME OF DISCHARGE. PATIENT TENATIVE DISCHARGE DATE IS 12/02/16. WILL CONTINUE TO FOLLOW WITH PATIENT
--- NOTE | 2016-11-30 18:25 | NUR ---
PT RESTING IN BED WITH EYES OPEN CALL LIGHT IN REACH NO PROBLEMS WILL MONITER
--- NOTE | 2016-11-30 19:40 | NUR ---
PT. GETTING OOB WITHOUT ASSISTANCE AND BED ALARM IS GOING OFF. ASKED PT. IF SHE NEEDED TO GO TO THE BATHROOM AND SHE DENIED NEED. ASSISTED PT. BACK INTO BED AND POSITIONED TO COMFORT. RE-ORIENTED PT. TO CALL LIGHT USE SHE MUST HAVE ASSISTANCE TO GET OOB. CALL LIGHT PLACED IN PT'S HAND AND BED ALARM BACK ON. ASSESSMENT COMPLETED.
[2016-11-30 21:00] VITALS: BP 129/73
--- NOTE | 2016-11-30 23:16 | NUR ---
PT. IN BED LYING ON HER LEFT SIDE WITH EYES CLOSED AND RESP. EVEN. CALL LIGHT WITHIN REACH.
--- NOTE | 2016-12-01 03:10 | NUR ---
PT. IN BED WITH HOB UP FOR COMFORT. PT. LYING ON HER LEFT SIDE WITH EYES CLOSED AND RESP. EVEN. CALL LIGHT WITHIN REACH.
--- NOTE | 2016-12-01 07:20 | NUR ---
LYING IN BED EYES CLOSED RESTING QUIETLY. APPROPRIATE RISE AND FALL OF CHEST. NO S/SX OF RESPIRATORY DISTRESS. CALL LIGHT WITHIN REACH, BED ALARM ON, SR X3. WILL CONTINUE TO MONITOR
[2016-12-01 08:50] VITALS: BP 135/66
[2016-12-01] MEDS ORDERED: CELEBREX 100 M100 MG PO (09:06)
[2016-12-01] MEDS ORDERED: THERAGRAN M [BK1 TAB PO (09:06)
[2016-12-01] MEDS ORDERED: BUSPAR 15 MG TA15 MG PO (09:06)
[2016-12-01] MEDS ORDERED: PROTONIX40 MG PO (09:06)
--- NOTE | 2016-12-01 10:28 | NUR ---
IN THERAPY GYM WITH OCCUPATIONAL THERAPY. DENIES ANY PAIN OR NEEDS. PARTICIPATING IN THERAPY. NO S/SX OF ACUTE DISTRESS. WILL CONTINUE TO MONITOR
--- NOTE | 2016-12-01 14:02 | NUR ---
IN THERAPY GYM WITH PT. DENIES ANY PAIN OR NEEDS. NO S/SX OF ACUTE DISTRESS. WILL CONTINUE TO MONITOR
--- NOTE | 2016-12-01 17:22 | NUR ---
SITTING UP IN BED WATCHING TV. DAUGHTER AT BEDSIDE. DENIES ANY PAIN OR NEEDS. CALL LIGHT WITHIN REACH, BED ALARM ON, BED LOW. WILL CONTINUE TO MONITOR
--- NOTE | 2016-12-01 18:00 | NUR ---
DENIES NEEDS.CL IN REACH
--- NOTE | 2016-12-01 19:20 | NUR ---
PT. IN BED WITH HOB UP FOR COMFORT. EYES CLOSED AND RESP. EVEN. PT. AWAKENS EASILY FOR ASSESSMENT. PT. KNOWS HER NAME AND WHERE SHE IS AND THAT IS ALL. ATTEMPTED TO RE-ORIENT PT. TO YEAR AND WHY SHE IS HERE, BUT SHE WAS UNABLE TO RECALL. CALL LIGHT WITHIN REACH.
[2016-12-01 21:37] VITALS: BP 100/57
--- NOTE | 2016-12-01 23:09 | NUR ---
PT. IN BED WITH HOB UP FOR COMFORT WITH EYES CLOSED AND RESP. EVEN. CALL LIGHT WITHIN REACH.
--- NOTE | 2016-12-02 03:08 | NUR ---
PT. IN BED WITH HOB UP FOR COMFORT AND HER EYES ARE CLOSED AND RESP. EVEN. CALL LIGHT WITHIN REACH.
--- NOTE | 2016-12-02 07:40 | NUR ---
RESTING QUIETLY IN BED. CALL LIGHT IN REACH. BED IN LOWEST POSITION.
[2016-12-02 08:14] VITALS: BP 132/64
--- NOTE | 2016-12-02 10:02 | NUR ---
PATIENT TO BE DISCHARGED TO HOME WITH DAUGHTER. DISCHARGED MEDICATIONS CALLED INTO [facility].
--- NOTE | 2016-12-02 12:12 | NUR ---
Patient to discharge home today with her daughter Melissa. Home Health set up with [facility] per daughter's choice with disclosure signed and witnessed. They will see her tomorrow for SN O&A, PT and OT. Faxed the HH order, H&P, med rec and disclosure to the HH. A W/C was ordered from [facility], patient's daughter will stop and pick it up enroute to the hospital. A F/U appt was made with Dr Tatum for Monday12/12/16 at 1600, Dr Carcamo for Monday12/09/16 at 14:45. The patient and her daughter deny any add'l needs. Dolly Joseph RN CM
--- NOTE | 2016-12-02 13:14 | NUR ---
DAUGHTER HERE TO TAKE PATIENT HOME. DISCHARGE INSTRUCTIONS GONE OVER WITH DAUGHTER AND PATIENT . PATIENT HELPED OUT TO CAR BY STAFF.
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
== END 2016-12-02 13:27 | disposition home health service (06) | DRG 84 ==
LOC: D.REHAB 16:59
PROVIDERS: ADMIT Emergency Medicine
DX: S06.5X9A Traumatic subdural hemorrhage with loss of consciousness of unspecified duration, initial encounter (principal); V89.2XXD Person injured in unspecified motor-vehicle accident, traffic, subsequent encounter; W22.10XD Striking against or struck by unspecified automobile airbag, subsequent encounter; I48.91 Unspecified atrial fibrillation; I10 Essential (primary) hypertension; R41.0 Disorientation, unspecified; R52 Pain, unspecified; S02.2XXA Fracture of nasal bones, initial encounter for closed fracture

== ENCOUNTER 2017-02-26 11:14 | Inpatient (IN) | payer MEDICARE, OTHER ==
[~2017-02-26] VITALS: Ht 165.1 cm; Wt 60.6 kg
[~2017-02-26 11:14] MED LIST changes: +PROTONIX40 MG PO; +THERAGRAN M [BK1 TAB PO
[2017-02-26 12:13] LABS: BASOPHILS 0.1 % (0-2); EOSINOPHILS 1.2 % (0-7); HEMATOCRIT 39.5 % (36.0-48.0); HEMOGLOBIN 13.3 g/dL (12-16); IMMATURE GRANULOCYTES 0.1 % (0-5); LYMPHOCYTES 21.9 % (15-50); MCH 31.8 pg (26.0-34.0); MCHC 33.7 g/dL (31.0-37.0); MCV 94.5 fL (80.0-100.0); MEAN PLATELET VOLUME 9.4 fL (7.4-10.4); MONOCYTES 8.3 % (2-11); NEUTROPHILS 68.4 % (40-80); PLATELET COUNT 264 10x3/uL (130-400); RBC 4.18 10x6/uL (4.00-5.40); RDW 15.7 % (11.5-14.5); WBC 7.2 10x3/uL (4.8-10.8)
[2017-02-26 12:36] LABS: ALBUMIN 3.6 g/dL (3.4-5.0); ALKALINE PHOSPHATASE 68 U/L (46-116); ALT (SGPT) 23 U/L (10-68); BILIRUBIN - TOTAL 0.43 mg/dL (0.2-1.3); CALC OSMOLALITY 277 mosm/kg (275-300); CALCIUM 9.3 mg/dL (8.5-10.1); CARBON DIOXIDE 26.6 mmol/L (21.0-32.0); CHLORIDE - SERUM 104 mmol/L (98-107); CREATININE - SERUM 0.9 mg/dL (0.6-1.3); GLUCOSE 79 mg/dL (74-106); POTASSIUM - SERUM 4.1 mmol/L (3.5-5.1); PROTEIN - SERUM 7.4 g/dL (6.4-8.2); SODIUM 139 mmol/L (136-145); UREA NITROGEN 16 mg/dL (7-18); eGFR NON AFRICAN AMERICAN 63 mL/min (90-120)
[2017-02-26 12:48] LABS: CKMB 0.7 U/L (0.0-3.6); CREATINE KINASE 38 UL (21-215); MAGNESIUM - SERUM 1.9 mg/dL (1.8-2.4); PHOSPHOROUS 3.2 mg/dL (2.5-4.9); PRO BNP 2538 pg/mL (0-450)
[2017-02-26 12:51] LABS: TROPONIN-I < 0.017 ng/mL (0.000-0.060)
[2017-02-26 12:52] LABS: APPEARANCE CLEAR (CLEAR); BILIRUBIN NEGATIVE (NEGATIVE); COLOR DK YELLOW (YELLOW); GLUCOSE NEGATIVE (NEGATIVE); KETONE NEGATIVE (NEGATIVE); NITRITE NEGATIVE (NEGATIVE); PROTEIN NEGATIVE (NEGATIVE); UROBILINOGEN NORMAL (NORMAL)
[2017-02-26 12:54] LABS: AMORPHOUS SEDIMENT <1+ /lpf (NONE SEEN); BACTERIA MODERATE /hpf (NONE SEEN); EPITHELIAL CELLS OCC /hpf (0-5); GRANULAR CAST OCC /lpf (NONE SEEN); HYALINE CAST RARE /lpf (NONE SEEN); RED CELLS - URINE RARE /hpf (0-5); WHITE CELLS - URINE 0-5 /hpf (0-5)
[2017-02-26 13:01] LABS: PROTIME 12.6 SECONDS (11.6-15.0)
[2017-02-26 13:02] LABS: D-DIMER-QUANTITATIVE 1.54 ug/mLFEU (0.20-0.54)
[2017-02-26 21:31] VITALS: BP 141/87
[2017-02-27 02:46] VITALS: BP 146/70; BMI 23.0
[2017-02-27 05:07] LABS: BASOPHILS 0.2 % (0-2); EOSINOPHILS 2.7 % (0-7); HEMATOCRIT 34.4 % (36.0-48.0); HEMOGLOBIN 11.6 g/dL (12-16); IMMATURE GRANULOCYTES 0.2 % (0-5); LYMPHOCYTES 33.1 % (15-50); MCH 31.5 pg (26.0-34.0); MCHC 33.7 g/dL (31.0-37.0); MCV 93.5 fL (80.0-100.0); MEAN PLATELET VOLUME 9.7 fL (7.4-10.4); NEUTROPHILS 54.8 % (40-80); PLATELET COUNT 247 10x3/uL (130-400); RBC 3.68 10x6/uL (4.00-5.40); RDW 15.7 % (11.5-14.5); WBC 5.6 10x3/uL (4.8-10.8)
[2017-02-27 05:27] LABS: ALKALINE PHOSPHATASE 54 U/L (46-116); ALT (SGPT) 18 U/L (10-68); CALC OSMOLALITY 278 mosm/kg (275-300); CARBON DIOXIDE 23.3 mmol/L (21.0-32.0); CHLORIDE - SERUM 105 mmol/L (98-107); CREATININE - SERUM 0.7 mg/dL (0.6-1.3); GLUCOSE 77 mg/dL (74-106); POTASSIUM - SERUM 3.8 mmol/L (3.5-5.1); PROTEIN - SERUM 6.2 g/dL (6.4-8.2); SODIUM 140 mmol/L (136-145); UREA NITROGEN 15 mg/dL (7-18); eGFR NON AFRICAN AMERICAN 84 mL/min (90-120)
[2017-02-27 07:46] VITALS: BP 112/79
[2017-02-27 08:05] VITALS: BP 140/81
[2017-02-27 16:17] VITALS: BP 148/91
[2017-02-27 22:34] VITALS: BP 125/72
[2017-02-28 04:48] VITALS: BP 137/90
[2017-02-28 06:11] LABS: ALKALINE PHOSPHATASE 56 U/L (46-116); ALT (SGPT) 21 U/L (10-68); CALC OSMOLALITY 277 mosm/kg (275-300); CALCIUM 9.3 mg/dL (8.5-10.1); CARBON DIOXIDE 27.8 mmol/L (21.0-32.0); CHLORIDE - SERUM 103 mmol/L (98-107); CREATININE - SERUM 0.7 mg/dL (0.6-1.3); GLUCOSE 80 mg/dL (74-106); POTASSIUM - SERUM 4.1 mmol/L (3.5-5.1); PROTEIN - SERUM 6.2 g/dL (6.4-8.2); SODIUM 139 mmol/L (136-145); UREA NITROGEN 14 mg/dL (7-18); eGFR NON AFRICAN AMERICAN 84 mL/min (90-120)
[2017-02-28 06:35] LABS: BASOPHILS 0.2 % (0-2); EOSINOPHILS 2.3 % (0-7); HEMATOCRIT 37.2 % (36.0-48.0); HEMOGLOBIN 12.3 g/dL (12-16); IMMATURE GRANULOCYTES 0.3 % (0-5); LYMPHOCYTES 27.3 % (15-50); MCH 31.6 pg (26.0-34.0); MCHC 33.1 g/dL (31.0-37.0); MEAN PLATELET VOLUME 9.9 fL (7.4-10.4); MONOCYTES 8.4 % (2-11); NEUTROPHILS 61.5 % (40-80); PLATELET COUNT 276 10x3/uL (130-400); RBC 3.89 10x6/uL (4.00-5.40); RDW 15.5 % (11.5-14.5); WBC 6.2 10x3/uL (4.8-10.8)
[2017-02-28 06:45] LABS: MCV 95.6 fL (80.0-100.0)
[2017-02-28 08:43] VITALS: BP 123/79
[2017-02-28 12:45] VITALS: BP 95/55
[2017-02-28 12:49] VITALS: Ht 165.1 cm; Wt 60.6 kg
[2017-02-28] MEDS ORDERED: OMNICEF300 MG PO (14:02)
[2017-02-28] MEDS ORDERED: ZITHROMAX250 MG PO (14:02)
[2017-02-28] MEDS ORDERED: FLORAJEN3 CAPS460 MG PO (14:02)
== END 2017-02-28 15:45 | disposition home health service (06) | DRG 194 ==
LOC: D.ER 11:14 → D.MS 17:42
PROVIDERS: Family Medicine
DX: J18.9 Pneumonia, unspecified organism (principal); E87.1 Hypo-osmolality and hyponatremia; F03.90 Unspecified dementia, unspecified severity, without behavioral disturbance, psychotic disturbance, mood disturbance, and anxiety; I10 Essential (primary) hypertension; I48.2 Chronic atrial fibrillation; Z87.891 Personal history of nicotine dependence; R41.0 Disorientation, unspecified